=== PATIENT | female | born 1940 ===

== ENCOUNTER 2020-09-25 06:10 | Day surgery (SDC) | payer OTHER | END 2020-09-25 10:30 | disposition home or self-care (01) | LOC: AMB-ENDOS 06:10 | PROVIDERS: ATTEND Surgery | DX: K57.32 Diverticulitis of large intestine without perforation or abscess without bleeding (principal); Z20.822 Contact with and (suspected) exposure to COVID-19 ==

== ENCOUNTER 2020-11-14 11:15 | Inpatient (IN) | payer OTHER ==
[~2020-11-14] VITALS: Ht 160 cm; Wt 67.6 kg
[2020-11-14] MEDS ORDERED: LOSART PO (17:05)
[2020-11-14] MEDS ORDERED: ELIQUIS5 MG PO (17:05)
[2020-11-14] MEDS ORDERED: TOPROL XL100 M1 PO (17:05)
[2020-11-14] MEDS ORDERED: SINGULAIR10 MG PO (17:06)
[2020-11-14] MEDS ORDERED: PEPCID AC20 MG PO (17:06)
[2020-11-14] MEDS ORDERED: BREO IH (17:07)
[2020-11-21] MEDS ORDERED: LOSARTAN-HCTZ1 EAC2 (08:02)
[2020-11-21] MEDS ORDERED: TRAZODONE HCL50 MG (08:03)
[2020-11-21] MEDS ORDERED: BREO ELLIPTA I1 EACH (08:03)
[2020-11-24] MEDS ORDERED: PRILOSEC OTC20 MG PO (09:31)
[2020-11-24] MEDS ORDERED: ACETAMINOPHEN500 M2 PO (09:31)
== END 2020-11-24 10:24 | disposition home or self-care (01) | DRG 329 ==
LOC: SURH 11-20 11:15 → O/R 11-21 05:50 → SURG 11-21 05:50 → SURH 11-21 11:15 → SURG 11-21 13:26
PROVIDERS: ADMIT Surgery; ATTEND Surgery
PROC: 3E0F7SF Introduction of Other Gas into Respiratory Tract, Via Natural or Artificial Opening (ICD-10-PCS; 2020-11-21)
PROC: 4A12X4Z Monitoring of Cardiac Electrical Activity, External Approach (ICD-10-PCS; 2020-11-21)
PROC: 3E0F7GC Introduction of Other Therapeutic Substance into Respiratory Tract, Via Natural or Artificial Opening (ICD-10-PCS; 2020-11-21)
PROC: 0DTN0ZZ Resection of Sigmoid Colon, Open Approach (ICD-10-PCS; principal; 2020-11-21 09:30)
DX: K57.20 Diverticulitis of large intestine with perforation and abscess without bleeding (principal); K65.1 Peritoneal abscess; K57.32 Diverticulitis of large intestine without perforation or abscess without bleeding